=== PATIENT | female | born 1995 | race Caucasian/White ===

== ENCOUNTER 2022-12-12 11:55 | Inpatient (IN) ==
[2022-12-12] MEDS ORDERED: PENICILLIN G POTASSIUM 6 MU in DEXTROSE 5% 250 ML IV STA (12:38)
[2022-12-12] MEDS ORDERED: OXYTOCIN 30 UNITS/500 ML BAG IV PRN ×3 (12:38→23:44)
[2022-12-12] MEDS ORDERED: LIDOCAINE 1% LOCAL 20 ML VIAL INFIL PRN (12:38)
[2022-12-12] MEDS ORDERED: BETAMETH SOD PHOS/ACETATE IA 6 MG/ML IM STA (12:46)
[2022-12-12 13:19] LABS: Hematocrit (blood only) 35.9 % (37.0-47.0); Hemoglobin 12.4 g/dl (12.0-16.0); Mean Corpuscular Hemoglobin 30.1 pg (25.0-34.0); Mean Corpuscular Hgb Conc 34.5 g/dL (32.0-36.0); Mean Corpuscular Volume 87.1 fL (80.0-100.0); Mean Platelet Volume 9.5 fL (9.4-12.4); Platelet Count 171 K/uL (130-400); RDW Standard Deviation 43.9 fL (36.4-46.3); Red Blood Count 4.12 M/uL (4.20-5.40); White Blood Count 9.71 K/ul (4.8-10.8)
[2022-12-12 13:36] LABS: Est GFR (African American) 143.8 ml/min
[2022-12-12] MEDS: LACTATED RINGER'S 1,000 ML IV PRN ×3 (13:40→20:59)
--- NOTE | 2022-12-12 13:59 | History & Physical Report ---
Date of Service December 12, 2022 Assessment & Plan (1) PROM (premature rupture of membranes): Plan: at at at 36w6d here for vaginal delivery Epidural when requested Pitocin augmentation for increased contraction pattern. monitor tracing category 1 (2) Premature labor: Admission and Anticipated Discharge Date Admission Date: December 12, 2022 History of Present Illness Chief Complaint: SROM Primary Care Provider: Jori Carson, III, [employer] 27 y/o at 36w5d weeks confirmed via u/s REYNA: 01/04/23. Presented with leakage of fluid that started overnight, went to clinic and on speculum exam had a gush of fluid. Additionally some contractions last night varying in length from 30sec to 2.5 minutes, with duration variable up to 10 minutes. Minimal pain, more tightness and pressure. No complications during this . Has been attending OB appointments regularly. Currently taking no medications. GBS unknown, PCN prophylaxis, Rubella immune, BTG: B+ Contractions: 4-6 min Fluid or Blood loss: Yes. Mucus plug with minimal blood last night. Movement: active FHR baseline 135, moderate variability, accelerations present, decelerations absent No COREAS, chest pain, SOB, N/V/D, fever or chills, lower extremity swelling. Last bowel movement 1-2 days ago. OB Labs: Blood Type B Positive 05/20/22 Antibody Screen NEGATIVE 05/20/22 Hemoglobin 10.8 g/dl (12.0-16.0) L 10/08/22 Hematocrit 33.1 % (37.0-47.0) L 10/08/22 Mean Corpuscular Volume 90.8 fL (80.0-100.0) 05/20/22 Platelet Count 236 K/uL (130-400) 05/20/22 Rubella IgG Antibody Non Immune (Immune) L 05/20/22 Rapid Plasma Reagin Nonreactive (Nonreactive) 05/20/22 Hepatitis B Surface Antigen. NON-REACTIVE (NON-REACTIVE) 05/20/22 Hepatitis C Antibody (EIA) NON-REACTIVE (NON-REACTIVE) 05/20/22 HIV (1&2) Ag and Ab Confirmation NON-REACTIVE (NON-REACTIVE) 05/20/22 Glucose 1 Hour 50 gm Load 155 mg/dl (70-130) H 10/08/22 Maternal Serum Alpha Fetoprotein 63.3 ng/mL 07/17/22 OB Optional Labs: Chlamydia trachomatis RNA Not Detected (NotDetected) 05/20/22 Neisseria gonorrhoeae RNA Not Detected (NotDetected) 05/20/22 Thyroid Stimulating Hormone (TSH) 0.701 uIu/ml (0.300-4.500) 05/01/22 Alpha Fetoprotein Triple Screen SEE NOTE 07/17/22 Allergies Allergy/AdvReac Type Severity Reaction Status Date / Time salicylic acid Allergy Severe Anaphylaxis Verified 12/12/22 12:52 & rash aspirin Allergy Intermediate Anaphylaxis Verified 12/12/22 12:52 geo Allergy Mild tingling Verified 12/12/22 12:52 lips/swelling cefuroxime [From Ceftin] AdvReac Mild Rash Verified 12/12/22 12:52 Home Medications Medication Instructions Recorded Confirmed Type vitamin#30 30 mg iron-10 1 cap PO DAILY #90 caps 11/13/21 12/12/22 Rx mg iron-folic acid 1 mg-omg3 capsule ferrous sulfate [Iron (ferrous PO 11/06/22 12/12/22 History sulfate)] RSV vac, preF A and preF B(PF) 120 0.5 ml IM ONCE #1 ea 12/08/22 12/12/22 Rx mcg/0.5 mL IM solution (Abrysvo) Patient History Medical History Anxiety Arthritis COVID-19 Depression Environmental allergies Headache, migraine Indigestion Slow to wake up after anesthesia Temporomandibular joint disorder UTI (urinary tract infection) Surgical History History of mandibular surgery History of placement of ear tubes History of wisdom tooth extraction S/P laparoscopic assisted vaginal hysterectomy (LAVH) Family History Mother Hypersomnia Grandmother (Maternal) Breast cancer Ovarian cancer Aunt Breast cancer Cervical cancer Grandfather (Paternal) Myocardial infarction Prostate cancer Denies family history of Colorectal cancer Social History (Updated 06/11/22 @ 12:34 by BONNIE Elias) Smoking Status: Never smoker Second Hand Exposure: No; Do You Dip or Chew Tobacco: No; Hx Alcohol Use: No Hx Substance Use: No Preferred Language: Mauritanian Communication Ability: Effective Visual Impairment: No Limitations Hearing Ability: Normal Fence Supervisor Required: No Beliefs That Will Affect Care: None marital status: marital status details: Fabian (29) [phone] Current Living Situation: Spouse Current Living Situation Comment: lives with spouse, 1 cat, spouse to change litter. 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 Skin: warm, dry, intact HEENT: NC/AT, anicteric sclera, conjunctiva without injection, moist mucus membranes Heart: +S1/S2, regular, no m/r/g Lungs: equal air entry bilaterally, no rales/rhonchi/wheezes Abd: +BS, soft, NT/ND, gravid uterus Ext: warm, no clubbing/cyanosis or edema Neuro: nonfocal, speech intact, no facial droop, moving all extremities on command. Results & Data Vital Signs (Past 12 Hours) Vital Signs Temp Pulse Resp BP 12/12/22 13:02 37.2 C 93 H 18 145/81 H 12/12/22 12:33 93 H 145/81 H 12/12/22 12:16 97 H 144/84 H Supervising Physician Co-Signing Physician Notes Patient seen and evaluated and agree with the above findings and plan. We will start oxytocin per regular protocol for unknown time of rupture. Betamethasone option reviewed and patient agreed with dosing. GBS unknown and will start penicillin. GBS swab collected
[2022-12-12] MEDS ORDERED: SODIUM CHLORIDE 0.9% PF INJ 10 ML VIAL ONE (14:32)
[2022-12-12] MEDS ORDERED: BUPIVACAINE 0.25% PF 30 ML VIAL ONE (14:32)
[2022-12-12] MEDS ORDERED: LIDOCAINE 2%/EPINEPHRINE 1:200,000 20 ML PF ONE (14:32)
[2022-12-12] MEDS ORDERED: fentaNYL citrate PF 100 MCG/2 ML VIAL ONE (14:32)
[2022-12-12] MEDS ORDERED: ePHEDrine sulfate 50 MG/ML AMP ONE (14:32)
[2022-12-12] MEDS ORDERED: fentaNYL 2MCG/ML ROPIVACAINE 1.25MG/ML 100 ML BAG EPI ONE (14:33)
[2022-12-12] MEDS ORDERED: NALBUPHINE HCL INJ 10 MG/ML AMP IV PRN (14:53)
[2022-12-12] MEDS ORDERED: SODIUM CHLORIDE 0.9% PF INJ 10 ML VIAL EPI STA (14:53)
[2022-12-12] MEDS ORDERED: fentaNYL 2MCG/ML ROPIVACAINE 1.25MG/ML 100 ML BAG EPI PRN (14:53)
[2022-12-12] MEDS ORDERED: LIDOCAINE 2% MPF LOCAL 5 ML VIAL EPI PRN (14:53)
[2022-12-12] MEDS ORDERED: diphenhydrAMINE 50 MG/ML VIAL IV PRN (14:53)
[2022-12-12] MEDS ORDERED: fentaNYL citrate PF 100 MCG/2 ML VIAL EPI PRN (14:53)
[2022-12-12] MEDS ORDERED: NALOXONE HCL 1 MG in SODIUM CHLORIDE 0.9% 1,000 ML IV PRN (14:53)
[2022-12-12] MEDS ORDERED: fentaNYL citrate PF 100 MCG/2 ML VIAL EPI STA (14:53)
[2022-12-12] MEDS ORDERED: ONDANSETRON INJ 2 MG/ML 2 ML VIAL IV PRN (14:53)
[2022-12-12] MEDS ORDERED: NALOXONE HCL 0.4 MG/1 ML VIAL/CARP IV PRN (14:53)
[2022-12-12] MEDS ORDERED: ePHEDrine sulfate 50 MG/ML AMP IV PRN (14:53)
[2022-12-12] MEDS ORDERED: BUPIVACAINE 0.25% PF 30 ML VIAL EPI STA (14:53)
[2022-12-12] MEDS ORDERED: LIDOCAINE 2%/EPINEPHRINE 1:200,000 20 ML PF EPI STA (14:53)
[2022-12-12] MEDS ORDERED: SODIUM CHLORIDE 0.9% PF INJ 10 ML VIAL EPI PRN (14:53)
[2022-12-12] MEDS ORDERED: ROPIVACAINE 0.5% PF 5 MG/ML 20 ML VIAL EPI PRN (14:53)
[2022-12-12] MEDS ORDERED: BUPIVACAINE 0.25% PF 30 ML VIAL EPI PRN (14:53)
--- NOTE | 2022-12-12 14:56 | Anesthesiology Consultation ---
Date of Service December 12, 2022 Assessment & Plan (1) Encounter for pre-operative examination: Chart Review Chart Review: Patient NOT seen in Pre Admission Testing and Acceptable Risk for Labor Epidural Consults Requested none History Height/Weight Height: 5 ft 10 in Weight: 76.657 kg Allergies Allergy/AdvReac Type Severity Reaction Status Date / Time salicylic acid Allergy Severe Anaphylaxis Verified 12/12/22 12:52 & rash aspirin Allergy Intermediate Anaphylaxis Verified 12/12/22 12:52 geo Allergy Mild tingling Verified 12/12/22 12:52 lips/swelling cefuroxime [From Ceftin] AdvReac Mild Rash Verified 12/12/22 12:52 Medications Home Medications Medication Instructions Recorded Confirmed Last Taken vitamin#30 30 mg iron-10 1 cap PO DAILY #90 caps 11/13/21 12/12/22 Unknown mg iron-folic acid 1 mg-omg3 capsule ferrous sulfate [Iron (ferrous PO 11/06/22 12/12/22 Unknown sulfate)] RSV vac, preF A and preF B(PF) 120 0.5 ml IM ONCE #1 ea 12/08/22 12/12/22 Unknown mcg/0.5 mL IM solution (Abrysvo) Active Medications Generic Name Dose Route Start Last Admin Trade Name Freq PRN Reason Stop Dose Admin Lactated Ringer's 1,000 mls @ 125 mls/hr 12/12/22 12:38 12/12/22 13:40 Lr IV 12/14/22 12:37 999 mls/hr .Q8H PRN Administration L&D Protocol Protocol Oxytocin 30 units in 500 mls @ 6 mls/hr 12/12/22 13:15 12/12/22 15:00 Pitocin IV 12/14/22 13:14 0.36 units/hr .Q24H PRN 6 mls/hr Labor Induction/Augmentation Titration Protocol 0.36 UNITS/HR Past Medical History Medical History Anxiety 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 COVID-19 Depression Environmental allergies Headache, migraine due to TMJ/arthritis Indigestion on occasion Slow to wake up after anesthesia also very dizzy afterward in 2017 after general, had to stay overnight instead of being outpatient Temporomandibular joint disorder popping no locking UTI (urinary tract infection) Exercise / Class Metabolic Activity II 4-5 Yardwork/Stairs/Walk up hill Past Family History Family History Mother Hypersomnia Grandmother (Maternal) Breast cancer Ovarian cancer Aunt Breast cancer Cervical cancer Grandfather (Paternal) Myocardial infarction Prostate cancer Denies family history of Colorectal cancer Past Surgical History Surgical History History of mandibular surgery 2017 History of placement of ear tubes x1 History of wisdom tooth extraction S/P laparoscopic assisted vaginal hysterectomy (LAVH) Past Anesthesia History No Hx of Anesthesia Complications and No Family Hx of Anesthesia Complications History of PONV No Hx of PONV and No Hx of Motion Sickness Social History Smoking Status: Never smoker Do You Dip or Chew Tobacco: No Hx Alcohol Use: No alcohol intake frequency: a few times a week Hx Substance Use: No substance use type: does not use Physical Exam Vital Signs Last Vital Signs Temp 36.9 C 12/12/22 14:15 Pulse 75 12/12/22 15:23 Resp 18 12/12/22 14:15 BP 144/88 H 12/12/22 15:23 Pulse Ox 100 12/12/22 15:22 Testing Laboratory Results 12/12/22 12:47 12/12/22 12:51
[2022-12-12] MEDS: PENICILLIN G POTASSIUM 3 MU in DEXTROSE 5% 100 ML IV PRN ×2 (17:55→21:46)
[2022-12-12] MEDS ORDERED: BENZOCAINE 20% SPRY 85 APPLN/85 GM CAN EXT PRN (23:44)
[2022-12-12] MEDS ORDERED: HYDROCORTISONE ACETATE 25 MG SUPP PR PRN (23:44)
[2022-12-12] MEDS ORDERED: DIPHTHERIA/TETANUS/PERTUSSIS Vaccine (Tdap, Age 7+yrs) 0.5mL SYR/VL IM ONE (23:44)
--- NOTE | 2022-12-12 23:45 | Delivery Summary ---
Vaginal Delivery Summary Date of Service December 12, 2022 Vaginal Delivery Summary and 1st Degree LAC Patient progressed to 10 cm dilated 100% effaced +2 station pushed over intact perineum with epidural anesthesia and delivered a viable female with weight and Apgars pending. Had the delivered in HUSSEIN position rest due to right transverse. No nuchal cord was noted. Body and shoulders quickly followed. was noted to have good tone and spontaneous cry shortly after delivery and a 1 minute delayed cord clamping was initiated. Cord was then double clamped and cut. taken to the warmer for evaluation. Cord blood was obtained. Attention was turned to delivery of placenta which delivered intact with three-vessel cord using gentle cord traction. There is noted to be bilateral labial lacerations which were repaired with 3-0 Vicryl in a continuous running stitch. Needle sponge and instrument counts were correct at the completion of the case. Both mother and stable in the immediate postdelivery period. MNP Vaginal Delivery Charge Delivery Type Details: and 1st Degree LAC
[2022-12-13] MEDS: IBUPROFEN 600 MG TAB PO PRN ×5 (01:44→23:54)
[2022-12-13] MEDS: PRENATAL VITAMIN 1 TAB PO SCH (08:13)
[2022-12-13] MEDS: FERROUS SULFATE 325 MG TAB PO SCH (08:13)
[2022-12-13] MEDS: DOCUSATE SODIUM 100 MG CAP PO SCH ×2 (08:14→20:24)
--- NOTE | 2022-12-13 08:19 | Obstetrical Progress Note ---
Date of Service December 13, 2022 Assessment & Plan (1) Encounter for care and examination after delivery: Day 1 status post vaginal delivery. Patient doing well. Routine care Subjective Ambulation: ambulating normally Voiding: no voiding problems Passing Gas:: Yes Diet Tolerance:: regular diet Lochia:: Moderate Feeding Type:: breast feeding Physical Exam Constitutional WD/WN, vitals as above Respiratory normal respiratory effort; no respiratory distress and no labored breathing Cardiovascular Extremities: + calf tenderness Gastrointestinal (Abdomen) Inspection/Auscultation: abdomen normal to inspection; abdomen not distended Percussion/Palpation: abdomen soft; abdomen nontender, no guarding and abdomen not rigid Genitourinary OB Exam Abdomen: + fundal height Fundus: + firm and + relation to umbilicus (Below); not tender or not boggy Results & Data Vital Signs (Past 12 Hours) Vital Signs Temp Pulse Pulse Resp BP BP Pulse Ox 12/13/22 03:40 36.8 C 99 H 16 123/74 96 12/13/22 01:40 18 12/13/22 01:10 18 12/13/22 00:10 18 12/13/22 00:40 18 12/13/22 00:25 18 12/12/22 23:55 18 12/12/22 23:40 18 12/13/22 01:46 98 H 138/86 12/13/22 01:41 92 H 145/73 H 12/13/22 01:37 99 H 147/81 H 12/13/22 01:22 95 H 139/78 12/13/22 01:08 88 138/76 12/13/22 00:53 99 H 149/95 H 12/13/22 00:38 90 141/82 H 12/13/22 00:22 94 H 136/73 12/13/22 00:07 103 H 141/77 H 12/12/22 23:52 102 H 12/12/22 23:52 142/72 H 12/12/22 23:42 97 12/12/22 23:42 115 H 12/12/22 23:37 96 12/12/22 23:37 106 H 12/12/22 23:37 141/72 H 12/12/22 23:32 96 12/12/22 23:32 107 H 12/12/22 23:16 20 12/12/22 23:16 20 12/12/22 23:29 96 H 12/12/22 23:29 134/67 12/12/22 23:00 20 12/12/22 23:00 20 12/12/22 23:27 97 12/12/22 23:27 93 H 12/12/22 22:00 18 12/12/22 22:00 18 12/12/22 22:30 18 12/12/22 22:30 18 12/12/22 21:30 18 12/12/22 21:30 18 12/12/22 23:22 96 12/12/22 23:22 99 H 12/12/22 23:17 96 12/12/22 23:17 116 H 12/12/22 23:12 98 12/12/22 23:12 117 H 12/12/22 23:07 98 12/12/22 23:07 101 H 12/12/22 23:02 99 12/12/22 23:02 103 H 12/12/22 23:00 99 H 12/12/22 23:00 134/78 12/12/22 22:58 20 12/12/22 22:58 37.3 C 20 12/12/22 22:57 99 12/12/22 22:57 105 H 12/12/22 22:52 100 12/12/22 22:52 120 H 12/12/22 22:47 98 12/12/22 22:47 103 H 12/12/22 22:45 104 H 12/12/22 22:45 120/59 L 12/12/22 22:42 98 12/12/22 22:42 111 H 12/12/22 22:37 98 12/12/22 22:37 107 H 12/12/22 22:32 98 12/12/22 22:32 94 H 12/12/22 22:31 107 H 12/12/22 22:31 141/85 H 12/12/22 22:27 98 12/12/22 22:27 129 H 12/12/22 22:22 97 12/12/22 22:22 96 H 12/12/22 22:17 97 12/12/22 22:17 102 H 12/12/22 22:14 98 H 12/12/22 22:14 148/90 H 12/12/22 22:12 96 12/12/22 22:12 93 H 12/12/22 22:07 98 12/12/22 22:07 93 H 12/12/22 22:02 96 12/12/22 22:02 94 H 12/12/22 22:00 98 H 12/12/22 22:00 150/93 H 12/12/22 21:57 97 12/12/22 21:57 91 H 12/12/22 21:55 93 12/12/22 21:55 101 H 12/12/22 21:52 89 L 12/12/22 21:52 100 H 12/12/22 21:50 92 12/12/22 21:50 107 H 12/12/22 21:47 96 12/12/22 21:47 94 H 12/12/22 21:42 97 12/12/22 21:42 98 H 12/12/22 21:37 96 12/12/22 21:37 85 12/12/22 21:35 94 12/12/22 21:35 84 12/12/22 21:32 95 12/12/22 21:32 81 12/12/22 21:30 85 12/12/22 21:30 137/82 12/12/22 21:27 96 12/12/22 21:27 88 12/12/22 21:26 94 12/12/22 21:26 80 12/12/22 21:22 95 12/12/22 21:22 90 12/12/22 21:17 96 12/12/22 21:17 89 12/12/22 21:14 89 12/12/22 21:14 140/89 12/12/22 21:12 95 12/12/22 21:12 84 12/12/22 21:07 97 12/12/22 21:07 85 12/12/22 21:06 93 12/12/22 21:06 95 H 12/12/22 21:00 16 12/12/22 21:00 16 12/12/22 21:00 18 12/12/22 21:00 37.1 C 18 12/12/22 21:02 96 12/12/22 21:02 97 H 12/12/22 20:59 92 H 12/12/22 20:59 144/94 H 12/12/22 20:57 96 12/12/22 20:57 91 H 12/12/22 20:52 96 12/12/22 20:52 84 12/12/22 20:47 96 12/12/22 20:47 86 12/12/22 20:45 85 12/12/22 20:45 139/88 12/12/22 20:42 96 12/12/22 20:42 84 12/12/22 20:37 95 12/12/22 20:37 82 12/12/22 20:30 18 12/12/22 20:30 18 12/12/22 20:32 95 12/12/22 20:32 88 12/12/22 20:30 81 12/12/22 20:30 133/84 12/12/22 20:27 96 12/12/22 20:27 94 H 12/12/22 20:22 96 12/12/22 20:22 81 O2 Del Method 12/13/22 03:40 Room Air 12/13/22 01:40 12/13/22 01:10 12/13/22 00:10 12/13/22 00:40 12/13/22 00:25 12/12/22 23:55 12/12/22 23:40 12/13/22 01:46 12/13/22 01:41 12/13/22 01:37 12/13/22 01:22 12/13/22 01:08 12/13/22 00:53 12/13/22 00:38 12/13/22 00:22 12/13/22 00:07 12/12/22 23:52 12/12/22 23:52 12/12/22 23:42 12/12/22 23:42 12/12/22 23:37 12/12/22 23:37 12/12/22 23:37 12/12/22 23:32 12/12/22 23:32 12/12/22 23:16 12/12/22 23:16 12/12/22 23:29 12/12/22 23:29 12/12/22 23:00 12/12/22 23:00 12/12/22 23:27 12/12/22 23:27 12/12/22 22:00 12/12/22 22:00 12/12/22 22:30 12/12/22 22:30 12/12/22 21:30 12/12/22 21:30 12/12/22 23:22 12/12/22 23:22 12/12/22 23:17 12/12/22 23:17 12/12/22 23:12 12/12/22 23:12 12/12/22 23:07 12/12/22 23:07 12/12/22 23:02 12/12/22 23:02 12/12/22 23:00 12/12/22 23:00 12/12/22 22:58 12/12/22 22:58 12/12/22 22:57 12/12/22 22:57 12/12/22 22:52 12/12/22 22:52 12/12/22 22:47 12/12/22 22:47 12/12/22 22:45 12/12/22 22:45 12/12/22 22:42 12/12/22 22:42 12/12/22 22:37 12/12/22 22:37 12/12/22 22:32 12/12/22 22:32 12/12/22 22:31 12/12/22 22:31 12/12/22 22:27 12/12/22 22:27 12/12/22 22:22 12/12/22 22:22 12/12/22 22:17 12/12/22 22:17 12/12/22 22:14 12/12/22 22:14 12/12/22 22:12 12/12/22 22:12 12/12/22 22:07 12/12/22 22:07 12/12/22 22:02 12/12/22 22:02 12/12/22 22:00 12/12/22 22:00 12/12/22 21:57 12/12/22 21:57 12/12/22 21:55 12/12/22 21:55 12/12/22 21:52 12/12/22 21:52 12/12/22 21:50 12/12/22 21:50 12/12/22 21:47 12/12/22 21:47 12/12/22 21:42 12/12/22 21:42 12/12/22 21:37 12/12/22 21:37 12/12/22 21:35 12/12/22 21:35 12/12/22 21:32 12/12/22 21:32 12/12/22 21:30 12/12/22 21:30 12/12/22 21:27 12/12/22 21:27 12/12/22 21:26 12/12/22 21:26 12/12/22 21:22 12/12/22 21:22 12/12/22 21:17 12/12/22 21:17 12/12/22 21:14 12/12/22 21:14 12/12/22 21:12 12/12/22 21:12 12/12/22 21:07 12/12/22 21:07 12/12/22 21:06 12/12/22 21:06 12/12/22 21:00 12/12/22 21:00 12/12/22 21:00 12/12/22 21:00 12/12/22 21:02 12/12/22 21:02 12/12/22 20:59 12/12/22 20:59 12/12/22 20:57 12/12/22 20:57 12/12/22 20:52 12/12/22 20:52 12/12/22 20:47 12/12/22 20:47 12/12/22 20:45 12/12/22 20:45 12/12/22 20:42 12/12/22 20:42 12/12/22 20:37 12/12/22 20:37 12/12/22 20:30 12/12/22 20:30 12/12/22 20:32 12/12/22 20:32 12/12/22 20:30 12/12/22 20:30 12/12/22 20:27 12/12/22 20:27 12/12/22 20:22 12/12/22 20:22
--- NOTE | 2022-12-13 09:28 | Anesthesia Procedure Note ---
Date of Service December 13, 2022 Anesthesia Post Epidural Note Vital Signs Vital Signs: Temp Pulse Resp BP Pulse Ox O2 Del Method 36.7 C 84 18 117/77 96 Room Air 12/13/22 08:00 12/13/22 08:00 12/13/22 08:00 12/13/22 08:00 12/13/22 03:40 12/13/22 08:00 Pain Intensity Bilateral Episiotomy/Laceration: Pain Intensity: 3 Notes Mental Status: alert / awake / arousable Nausea / Vomiting: adequately controlled Pain: adequately controlled Airway Patency, RR, SpO2: stable & adequate BP & HR: stable & adequate Hydration State: stable & adequate Neuraxial Anesthesia: was administered and sensory block is resolving Anesthetic Complications: no major complications apparent and Pt Satisfied with anesthetic care Epidural: Removed without complications and With tip intact
[2022-12-13] MEDS: ACETAMINOPHEN 325 MG TAB PO PRN ×2 (13:36→20:24)
[2022-12-13] MEDS ORDERED: MEASLES, MUMPS & RUBELLA VIRUS VACCINE (MMR) VIAL SQ ONE (17:41)
[2022-12-13] MEDS ORDERED: bisacodyL 5 MG TABEC PO SCH (20:00)
[2022-12-14] MEDS: IBUPROFEN 600 MG TAB PO PRN ×2 (05:38→14:24)
--- NOTE | 2022-12-14 07:45 | Obstetrical Progress Note ---
Date of Service December 14, 2022 Assessment & Plan (1) Encounter for care and examination after delivery: 27 yo PP2 from , doing well -Meeting all pp milestones -B+/rubella nonimm, s/p mmr/ -f/u 6 weeks for appt, stable for dc Subjective Ambulation: ambulating normally Voiding: no voiding problems Passing Gas:: Yes Diet Tolerance:: regular diet Lochia:: Small Feeding Type:: breast feeding Pain well managed with medication Review of Systems Denies fevers, chills, n/v, COREAS, CP, SOB Physical Exam Constitutional WD/WN, vitals as above no acute distress Respiratory normal respiratory effort, lungs clear to auscultation Cardiovascular RRR, no murmur, no edema Gastrointestinal (Abdomen) Percussion/Palpation: abdomen soft; abdomen nontender fundus firm at umbilicus and NT Musculoskeletal BLE symmetric, nonerythematous, nontender Results & Data Vital Signs (Past 12 Hours) Vital Signs Temp Pulse Resp BP Pulse Ox O2 Del Method 12/14/22 05:42 97.5 F L 84 16 121/77 98 Room Air 12/13/22 23:50 97.9 F 78 16 136/74 96 Room Air 12/13/22 20:20 97.9 F 101 H 16 122/59 L 94 Room Air
[2022-12-14] MEDS: DOCUSATE SODIUM 100 MG CAP PO SCH (08:38)
[2022-12-14] MEDS: PRENATAL VITAMIN 1 TAB PO SCH (08:38)
[2022-12-14] MEDS: FERROUS SULFATE 325 MG TAB PO SCH (08:38)
[2022-12-14] MEDS ORDERED: bisacodyL 10 MG SUPP PR PRN (23:44)
== END 2022-12-14 19:20 | disposition home or self-care (01) | DRG 807 ==
LOC: 4S1 11:55 → 4E2 12-13 03:05